=== PATIENT | male | born 1960 | race Caucasian/White ===

== ENCOUNTER 2016-11-18 19:20 | Emergency (ER) | payer OTHER ==
[2016-11-18 19:27] VITALS: BP 126/76
[2016-11-18] MEDS ORDERED: predniSONE TAB* 20 MG PO ONE (19:40)
--- NOTE | 2016-11-18 19:40 | ED ---
Skin Complaint - HPI Summary HPI Summary: 55 YEAR OLD MALE PRESENTS WITH COMPLAINS OF RASH ON HIS LEFT BROWER. - History of Current Complaint Chief Complaint: UCSkin Time Seen by Provider: 11/18/16 19:35 Stated Complaint: RASH - Allergy/Home Medications Allergies/Adverse Reactions: Allergies Allergy/AdvReac Type Severity Reaction Status Date / Time No Known Allergies Allergy Verified 11/18/16 19:27 PMH/Surg Hx/FS Hx/Imm Hx Previously Healthy: Yes - Surgical History Surgery Procedure, Year, and Place: bilateral ACL repair, hernia repair Infectious Disease History: No Infectious Disease History: Denies: Traveled Outside the [place] in Last 30 Days - Social History Alcohol Use: None Substance Use Type: Reports: None Smoking Status (MU): Former Smoker Review of Systems Constitutional: Negative Eyes: Negative ENT: Negative Cardiovascular: Negative Respiratory: Negative Gastrointestinal: Negative Genitourinary: Negative Musculoskeletal: Negative Positive: Rash - LEFT BROWER All Other Systems Reviewed And Are Negative: Yes Physical Exam Triage Information Reviewed: Yes Vital Signs On Initial Exam: Initial Vitals Temp Pulse Resp BP Pulse Ox 36.6 C 65 16 126/76 98 11/18/16 19:23 11/18/16 19:23 11/18/16 19:23 11/18/16 19:23 11/18/16 19:23 Vital Signs Reviewed: Yes Skin: Positive: Other - RASH BROWER Head/Face: Positive: Normal Head/Face Inspection Eyes: Positive: Normal ENT: Positive: Normal ENT inspection Neck: Positive: Supple Respiratory/Lung Sounds: Positive: Clear to Auscultation Cardiovascular: Positive: Normal Diagnostics - Vital Signs Vital Signs Temp Pulse Resp BP Pulse Ox 11/18/16 19:23 36.6 C 65 16 126/76 98 - Laboratory Lab Statement: Any lab studies that have been ordered have been reviewed, and results considered in the medical decision making process. Course/Dx - Diagnoses Provider Diagnoses: Rash and nonspecific skin eruption Discharge - Discharge Plan Condition: Stable Disposition: HOME Prescriptions: Cephalexin CAP* [Keflex CAP*] 500 mg PO TID #21 cap Triamcinolone 0.1% CREAM (NF) [Kenalog 0.1% Cream (NF)] 1 applic .SEE ORDER TID PRN #90 gm PRN Reason: Itching predniSONE TAB* [Deltasone TAB*] 40 mg PO DAILY #10 tab Patient Education Materials: Acute Rash (ED) Referrals: Non Staff,Doctor [Primary Care Provider] -
[2016-11-18] MEDS ORDERED: LoraTADine TAB(NF) 10 MG TAB (AUTOSUB to CETIRIZINE) PO ONE (19:41)
== END 2016-11-18 19:49 | disposition home or self-care (01) ==
LOC: UCCORT 19:20
DX: R21 Rash and other nonspecific skin eruption (principal); Z87.891 Personal history of nicotine dependence
CPT/HCPCS: 99212; A9270-GY; G0463; J7512

== ENCOUNTER 2019-08-03 08:05 | Emergency (ER) | payer MEDICAID, OTHER ==
[2019-08-03 08:20] VITALS: BP 136/76
--- NOTE | 2019-08-03 08:31 | UC ---
Skin Complaint HPI - HPI Summary HPI Summary: 58-year-old male presents with 4-5 day history of a pruritic rash to his trunk. States rash started after using a new body wash. Reports he has also been working outdoors but has had no known contact with environmental irritants. Denies fever, chills, swelling of the lips, tongue, throat, difficulty breathing , changes in medications, or diet. - History of Current Complaint Chief Complaint: UCSkin Time Seen by Provider: 08/03/19 08:16 Stated Complaint: UPPER BODY RASH Hx Obtained From: Patient Pain Intensity: 0 - Allergy/Home Medications Allergies/Adverse Reactions: Allergies Allergy/AdvReac Type Severity Reaction Status Date / Time No Known Allergies Allergy Verified 08/03/19 08:20 Home Medications: Home Medications Clobetasol Propionate [Impoyz] 60 gm TP BID #1 cream..g. 08/03/19 [Rx] PMH/Surg Hx/FS Hx/Imm Hx Previously Healthy: Yes - Denies significant PMH - Surgical History Surgical History: Yes Surgery Procedure, Year, and Place: bilateral ACL repair, hernia repair. bilateral cataracts - Family History Family History: Denies significant FMH - Social History Occupation: Unemployed Lives: With Family Alcohol Use: None Substance Use Type: None Smoking Status (MU): Former Smoker When Did the Patient Quit Smoking/Using Tobacco: 2000 Review of Systems All Other Systems Reviewed And Are Negative: Yes Constitutional: Positive: Negative Skin: Positive: Rash Respiratory: Positive: Negative Cardiovascular: Positive: Negative Gastrointestinal: Positive: Negative Genitourinary: Positive: Negative Musculoskeletal: Positive: Negative Neurological/Mental Status: Positive: Negative Is Patient Immunocompromised?: No Physical Exam - Summary Physical Exam Summary: GENERAL APPEARANCE: Well developed, well nourished, alert and cooperative, and appears to be in no acute distress. CARDIAC: Normal S1 and S2. No S3, S4 or murmurs. Rhythm is regular. There is no peripheral edema, cyanosis or pallor. Extremities are warm and well perfused. Capillary refill is less than 2 seconds. Peripheral pulses intact. LUNGS: Clear to auscultation without rales, rhonchi, wheezing or diminished breath sounds. ABDOMEN: Positive bowel sounds. Soft, nondistended, nontender. No guarding or rebound. No masses or hepatosplenomegally. MUSKULOSKELETAL: ROM intact to all extremities. No joint erythema or tenderness. Normal muscular development. Normal gait. SKIN: Skin normal color, texture and turgor. Confluent maculopapular erythematous rash to anterior and posterior trunk and posterior neck. Triage Information Reviewed: Yes Vital Signs: Initial Vital Signs Temp 98.0 F 08/03/19 08:14 Pulse 59 08/03/19 08:14 Resp 18 08/03/19 08:14 BP 136/76 08/03/19 08:14 Pulse Ox 97 08/03/19 08:14 Vital Signs Reviewed: Yes Course/Dx - Course Course Of Treatment: 58-year-old male presents with 4-5 day history of a pruritic rash to his trunk. States rash started after using a new body wash. Reports he has also been working outdoors but has had no known contact with environmental irritants. Denies fever, chills, swelling of the lips, tongue, throat, difficulty breathing , changes in medications, or diet. Afebrile. Vital signs stable. Patient had a confluent maculopapular erythematous rash to anterior and posterior trunk and posterior neck and otherwise unremarkable exam. Discussed with the patient that his rash appears to be a contact dermatitis of unknown cause although since the rash did start after using a new body wash have recommended he cease use this product. We will treat him with clobetasol cream twice daily for up to 2 weeks as well as recommend using an [id number] nondrowsy antihistamine. He is to return here or follow up with primary care in 5-7 days if symptoms are not improving. Anticipatory guidance and warning symptoms are reviewed with the patient. Verbalizes understanding and agrees with plan of care. - Differential Diagnoses - Skin Complaint Differential Diagnoses: Allergic Reaction, Contact Dermatitis, Drug Rash, Local Allergic Reaction, Poison Nicole, Poison Poca, Tinea, Urticaria - Diagnoses Provider Diagnosis: Contact dermatitis Discharge ED - Sign-Out/Discharge Documenting (check all that apply): Patient Departure All imaging exams completed and their final reports reviewed: No Studies - Discharge Plan Condition: Stable Disposition: HOME Prescriptions: Clobetasol Propionate [Impoyz] 60 gm TP BID #1 cream..g. Patient Education Materials: Dermatitis (ED) Referrals: No Primary Care Phys,NOPCP [Primary Care Provider] - [facility] [facility] [Outside] Additional Instructions: Apply clobetasol cream to affected area twice a day for up to 2 weeks. Take an over the counter non-drowsy antihistamine such as Zyrtec, Kaur, or Claritin up to 2 times a day to help with the itching. Stop using the new body wash. Return here or follow up with primary care in 5-7 days if no improvement in symptoms. I have provided you the contact information for the [facility]'s physician referral service if you need assistance with establishing with a provider. Seek immediate medical attention in the emergency room if you develop swelling of the lips, tongue, throat, have difficulty breathing, or have any worsening of symptoms. - Billing Disposition and Condition Condition: STABLE Disposition: Home
== END 2019-08-03 08:45 | disposition home or self-care (01) ==
LOC: UCCORT 08:05
DX: L25.9 Unspecified contact dermatitis, unspecified cause (principal)
CPT/HCPCS: 99212; G0463

== ENCOUNTER 2019-08-09 12:21 | Emergency (ER) | payer MEDICAID ==
[2019-08-09 13:01] VITALS: BP 134/81
--- NOTE | 2019-08-09 13:08 | UC ---
Skin Complaint HPI - HPI Summary HPI Summary: 58 y/o male presents to the urgent care c/o an itchy rash in his back and all extremities since 08/02/2019. Pt reports he was daron here at the urgent care on 08/03/2019 and Dx with contact dermatitis and Rx Clobetasol topical cream. Rash resolved in his chest, but he still has in his back and now he also developed the rash in his lower extremities. Now he run out of the topical cream and request more. He stooped using the new body lotion he used last week. Also his got a new detergent and she already change it for the one she use to wash his clothes. Pt denies fever, throat swelling, difficulty breathing. SOB, cough, sick contact, chest pain, TORRES, dizziness, abdominal pain, N/V/d. - History of Current Complaint Chief Complaint: UCSkin Time Seen by Provider: 08/09/19 12:59 Stated Complaint: SKIN CONCERN-RECHECK Hx Obtained From: Patient Onset/Duration: Gradual Onset, Lasting Weeks - itchy rash since 08/01 which has been resolving with clobetasol topical cream Rx here at the urgent care on 2019, Still Present - more the back and b/l lower extremities Skin Exposure Onset/Duration: Weeks Ago - 7 days ago Timing: Constant Onset Severity: Mild Current Severity: Moderate Pain Intensity: 0 Pain Scale Used: 0-10 Numeric Location: Generalized - in his back and all extremities Character: Pruritus, Redness Aggravating Factor(s): Touch Alleviating Factor(s): OTC Creams/Salves - clbetasol topitacl oint, which is - Allergy/Home Medications Allergies/Adverse Reactions: Allergies Allergy/AdvReac Type Severity Reaction Status Date / Time No Known Allergies Allergy Verified 08/09/19 13:01 Home Medications: Home Medications Calamine/Pramoxine LOTION* [Caladryl LOTION*] 1 applic .SEE ORDER BID #1 btl [Rx] Clobetasol Propionate [Impoyz] 60 gm TP BID #1 cream..g. 08/09/19 [Rx] predniSONE 20 mg TAB [Deltasone 20 MG TAB*] 20 mg PO DAILY #11 tab 08/09/19 [Rx] PMH/Surg Hx/FS Hx/Imm Hx Previously Healthy: Yes - Pt denies PMHX - Surgical History Surgical History: Yes Surgery Procedure, Year, and Place: bilateral ACL repair, hernia repair. bilateral cataracts - Family History Family History: Colon Cancer - Social History Occupation: Employed Full-time Lives: With Family Alcohol Use: None Substance Use Type: None Smoking Status (MU): Former Smoker When Did the Patient Quit Smoking/Using Tobacco: 2000 Review of Systems All Other Systems Reviewed And Are Negative: Yes Constitutional: Positive: Negative Skin: Positive: Rash - itchy rash in his back and all extremities. RAhs in the chest resolved with clobetasol topical cream Eyes: Positive: Negative ENT: Positive: Negative Respiratory: Positive: Negative Cardiovascular: Positive: Negative Gastrointestinal: Positive: Negative Genitourinary: Positive: Negative Motor: Positive: Negative Neurovascular: Positive: Negative Musculoskeletal: Positive: Negative Neurological/Mental Status: Positive: Negative Psychological: Positive: Negative Is Patient Immunocompromised?: No Physical Exam - Summary Physical Exam Summary: Vital Signs Reviewed: Yes General: well appearing, well nourished male in no acute apparent pain distress , sitting comfortably on examining table Eye Exam: Normal Eyes: Positive: Conjunctiva Clear - PERRLA< EOMI, fundi grossly normal ENT: Positive: Normal ENT inspection, Hearing grossly normal, Pharynx normal, TMs normal Neck: Positive: Supple, Nontender, No Lymphadenopathy Respiratory: Positive: Chest non-tender, Lungs clear, Normal breath sounds, No respiratory distress Cardiovascular: Positive: RRR, No Murmur, Pulses Normal, Brisk Capillary Refill Abdomen Description: Positive: Nontender, No Organomegaly, Soft. Negative: CVA Tenderness (R), CVA Tenderness (L) Bowel Sounds: Positive: Present Musculoskeletal: Positive: Strength Intact, ROM Intact, No Edema Neurological: Positive: Alert, Muscle Tone Normal Psychological Exam: Normal Skin: Positive: Positive confluent maculopapular erythematous eruption on back , and B/L arms and legs signs of excoriation, no vesicles or drainage observed. non tender to palpation, no swelling. Triage Information Reviewed: Yes Vital Signs: Initial Vital Signs Temp 98.4 F 08/09/19 12:56 Pulse 69 08/09/19 12:56 Resp 18 08/09/19 12:56 BP 134/81 08/09/19 12:56 Pulse Ox 97 08/09/19 12:56 Course/Dx - Course Course Of Treatment: 58 y/o male presents to the urgent care c/o an itchy rash in his back and all extremities since 08/02/2019. Pt reports he was daron here at the urgent care on 08/03/2019 and Dx with contact dermatitis and Rx Clobetasol topical cream. Rash resolved in his chest, but he still has in his back and now he also developed the rash in his lower extremities. Now he run out of the topical cream and request more. He stooped using the new body lotion he used last week. Also his got a new detergent and she already change it for the one she use to wash his clothes. Pt denies fever, throat swelling, difficulty breathing. SOB, cough, sick contact, chest pain, TORRES, dizziness, abdominal pain, N/V/d. Hx obtained. Pt's rash is unspecified, probably contact dermatitis due use of a new body lotions and new detergent. PT RX Prednisone PO , Clobetasol topical cream again and Calamide lotion as directed below. Advised to continue taking Benadryl PO as recommended last week. Pt advised if not improvement or worsening of symptoms to return to the clinic or f/u with PCP for further treatment.D/C instructions explained. PT understood and agreed with plan of care. - Differential Diagnoses - Skin Complaint Differential Diagnoses: Allergic Reaction, Contact Dermatitis, Local Allergic Reaction, MRSA, Poison Nicole, Urticaria - Diagnoses Provider Diagnosis: Contact dermatitis, Pruritus Discharge ED - Sign-Out/Discharge Documenting (check all that apply): Patient Departure All imaging exams completed and their final reports reviewed: No Studies - Discharge Plan Condition: Good Disposition: HOME Prescriptions: Calamine/Pramoxine LOTION* [Caladryl LOTION*] 1 applic .SEE ORDER BID #1 btl Clobetasol Propionate [Impoyz] 60 gm TP BID #1 cream..g. predniSONE 20 mg TAB [Deltasone 20 MG TAB*] 20 mg PO DAILY #11 tab Patient Education Materials: Contact Dermatitis (ED) Referrals: [facility] [place] [facility] [Outside] - 3 Days Additional Instructions: 1-Please Start taking Prednisone PO taper dose as directed 2- Continue taking Benadryl PO to alleviate itchiness. Apply Clobetasol topical cream as directed. Avoid exposure to the sun. Also apply Calamide lotion as directed to alleviates itchiness 3-If symptoms do not improve or worsen please f/u with your PCP for further evaluation and treatment. 4- If symptoms worsen and you develop SOB or difficulty breathing please go immediately to the ER for further management. 5- Avoid new detergents or body lotions or new foods. - Billing Disposition and Condition Condition: GOOD Disposition: Home - Attestation Statements Provider Attestation: This patient was not seen by me. I was available for consult. Chart reviewed. SHEA
== END 2019-08-09 13:42 | disposition home or self-care (01) ==
LOC: UCCORT 12:21
DX: L25.9 Unspecified contact dermatitis, unspecified cause (principal); L29.9 Pruritus, unspecified; Z87.891 Personal history of nicotine dependence
CPT/HCPCS: 99212; G0463